=== PATIENT | male | born 1955 | race African-American/Black ===

== ENCOUNTER 2023-01-07 10:33 | Day surgery (SDC) | payer OTHER ==
[2023-01-04 13:10] VITALS: BMI 24.7
[2023-01-07 11:22] VITALS: RESP 16; TEMP 98.5
[2023-01-07 12:55] VITALS: PULSE 74
[2023-01-07 12:57] VITALS: BP 107/77
== END 2023-01-07 13:02 | disposition home or self-care (01) ==
LOC: FASU-ENDO 10:33
PROVIDERS: ATTEND Internal Medicine Gastroenterology
PROC: 0DJD8ZZ Inspection of Lower Intestinal Tract, Via Natural or Artificial Opening Endoscopic (ICD-10-PCS; principal; 2023-01-07 12:19)
DX: Z12.11 Encounter for screening for malignant neoplasm of colon (principal); Z86.010 Personal history of colon polyps